=== PATIENT | female | born 1990 | race Hispanic/Latino ===

== ENCOUNTER 2017-01-31 09:31 | Emergency (ER) | payer OTHER ==
[~2017-01-31] VITALS: Ht 157.5 cm; Wt 79.2 kg
[~2017-01-31 09:31] MED LIST: ENDOCET 5-3251 EACH PO; FERROUS SULFAT325 MG PO; IBUPROFEN800 MG PO; SINGULAIR10 MG PO; TUMS500 MG PO; TYLENOL EXTRA500 MG PO; VENTOLIN HFA18 GM IH; VITAFOL-OB+DHA1 EACH PO; ZYRTEC10 M2 PO
[2017-01-31 11:38] LABS: HEMATOCRIT 39.8 % (36.0-46.0); MCH 27.4 PG (29.0-34.0); MCHC 32.4 G/DL (30.0-36.0); MCV 84.5 FL (83-99); MEAN PLAT.VOLUME 9.5 uM^3 (9.5-12.4); PLATELET COUNT 232 K/uL (156-360); RBC DIS.WIDTH-CV 12.4 % (11.8-14.6); RBC DIS.WIDTH-SD 38.3 % (39-53); RED BLOOD COUNT 4.71 M/uL (3.80-5.20)
[2017-01-31 11:42] LABS: ADD MIUA? NO; BILIRUBIN NEGATIVE; BLOOD NEGATIVE; COLOR STRAW ((YELLOW)); GLUCOSE (STRIP) NEGATIVE; KETONES NEGATIVE; LEUKOCYTES NEGATIVE; NITRITE NEGATIVE; PROTEIN (STRIP) NEGATIVE; SPECIFIC GRAVITY 1.013 (1.000-1.030); UROBILINOGEN 0.2 MG/DL (0.2-1.0)
[2017-01-31 11:46] LABS: CHLORIDE 104 mEq/L (99-109); SODIUM 137 mEq/L (136-147)
[2017-01-31 11:49] LABS: GLUCOSE 80 mg/dL (70-99)
[2017-01-31 11:50] LABS: ANION GAP 11 MEQ/L (2-14)
[2017-01-31 11:51] LABS: TOTAL BILIRUBIN 0.3 mg/dL (0.0-1.0)
[2017-01-31 11:52] LABS: ALKALINE PHOSPHATASE 82 IU/L (3-129); GFR ESTIMATE (CALCULATED) > 59 mL/min/
[2017-01-31 11:53] LABS: UREA NITROGEN (BUN) 12 mg/dL (9-23)
[2017-01-31 11:56] LABS: LIPASE 39 U/L (1.0-51.0)
[2017-01-31 12:04] LABS: QUANTITATIVE HCG < 4.0 MIU/ML
[2017-01-31] MEDS ORDERED: MOTRIN800 MG PO (13:05)
[2017-01-31] MEDS ORDERED: NORCO 5/3251 TABLET PO (13:05)
[2017-01-31] MEDS ORDERED: STOOL SOFTENER250 MG PO (13:06)
[2017-01-31 13:37] VITALS: BP 133/74
== END 2017-01-31 13:39 | disposition home or self-care (01) ==
LOC: EME 09:31
PROVIDERS: Nurse Practitioner Family
DX: R10.31 Right lower quadrant pain (principal); J45.909 Unspecified asthma, uncomplicated; Z98.51 Tubal ligation status; Z90.49 Acquired absence of other specified parts of digestive tract
CPT/HCPCS: 76856; 80053; 81003; 83690; 84702; 85027; 99281; 99284